=== PATIENT | female | born 1985 | race Caucasian/White ===

== ENCOUNTER 2017-07-05 05:47 | Day surgery (SDC) | payer MEDICAID ==
[~2017-07-05] VITALS: Ht 157.5 cm; Wt 62.6 kg
[~2017-07-05 05:47] MED LIST: NORG1TAB88 PO
[2017-07-05] MEDS ORDERED: LACTATED RINGERS 1,000 ML IV SCH (06:40)
[2017-07-05 06:43] LABS: UCG SCREEN NEGATIVE
[2017-07-05] MEDS ORDERED: SKIN ADHESIVE 0.7 GM EA TOP ONE (07:03)
[2017-07-05] MEDS ORDERED: BUPIVACAINE HCL/PF 0.25% (2.5MG/ML) 10ML ONE (07:03)
[2017-07-05] MEDS ORDERED: NORMAL SALINE 0.9% 10 ML SYR ONE (07:03)
[2017-07-05] MEDS ORDERED: BACITRACIN 50,000 UNITS/VIAL ONE (07:04)
[2017-07-05] MEDS ORDERED: LIDOCAINE HCL 1% 20ML VIAL (Pyxis) INJ ONE ×2 (07:04→08:29)
[2017-07-05] MEDS ORDERED: FENTANYL CITRATE/PF 50MCG/ML 2ML VIAL ONE (07:21)
[2017-07-05] MEDS ORDERED: MIDAZOLAM HCL 2 MG/2 ML VIAL ONE (07:22)
[2017-07-05] MEDS ORDERED: PROPOFOL 200MG/20ML VIAL IV ONE (08:28)
[2017-07-05] MEDS ORDERED: ROCURONIUM BROMIDE 10MG/ML VIAL 5ML IV ONE (08:28)
[2017-07-05] MEDS ORDERED: ONDANSETRON HCL 4MG/2ML VIAL ONE (08:29)
[2017-07-05] MEDS ORDERED: METOCLOPRAMIDE HCL 10MG/2ML VIAL ONE (08:30)
[2017-07-05] MEDS ORDERED: NEOSTIGMINE METHYLSULFATE 1MG/ML 10 ML VIAL ONE (09:24)
[2017-07-05] MEDS ORDERED: GLYCOPYRROLATE 0.2 MG/ML 2ML VIAL ONE (09:24)
== END 2017-07-05 12:00 | disposition home or self-care (01) ==
LOC: OR 05:47
PROVIDERS: ATTEND Specialist
DX: K42.9 Umbilical hernia without obstruction or gangrene (principal); Z98.890 Other specified postprocedural states
CPT/HCPCS: 49585; 81025; A4216; C1781; G0168; J2250; J2405; J2710; J2765; J3010; J3490; J7120; J2704